=== PATIENT | female | born 1940 | race Caucasian/White ===

== ENCOUNTER 2017-01-16 14:47 | Emergency (ER) | payer MEDICARE, BC ==
[2017-01-16] MEDS ORDERED: Acetaminophen/HYDROcodone 325-5 MG Tab PO ONE (15:46)
--- NOTE | 2017-01-16 16:06 | EDM.PDOC ---
ED HPI Trauma - General Chief Complaint: Lower Extremity Injury/Pain Stated Complaint: FALL/ LEFT LEG INJURY Time Seen by Provider: 01/16/17 15:06 Source: Reports: Patient History Limitations: Reports: No limitations - History of Present Illness INITIAL COMMENTS - FREE TEXT/NARRATIVE: The patient presents with left hip and pelvis pain. She was knocked down by 3 excited dogs and landed on her buttock and left hip. She did not hit her head and she has no neck pain. She was able to stand on her leg but walking was painful. She has no chest pain or abdominal pain. She has no pain in her wrists. Occurred When: just prior to arrival Occurred Where: home Method of Injury: fall Severity: moderate Pain/Injury Location: Reports: lower extremity, left (Hip and pelvis area) Consciousness: Reports: no loss of consciousness Associated Symptoms: Reports: no other symptoms Allergies/ADRs: Allergies No Known Allergies Allergy (Verified 01/16/17 15:12) Home Medications: Ambulatory Orders Acetaminophen [Acetaminophen Extra Strength] 2 tab PO ASDIRECTED PRN 01/09/15 [ Confirmed 05/04/16] ClonazePAM [KlonoPIN] 1 tab PO BEDTIME PRN 01/09/15 [Confirmed 05/04/16] Gabapentin [Neurontin] 1 cap PO DAILY 01/09/15 [Confirmed 05/05/16] Multivitamin [Daily Multiple Vitamin] 1 tab PO DAILY 01/09/15 [Confirmed ] [place]-3 Fatty Acids [[place]-3] 1 cap PO DAILY 01/09/15 [Confirmed 05/04/16] Propranolol [Inderal] 40 mg PO BID 01/09/15 [Confirmed 05/05/16] Sertraline [Zoloft] 25 mg PO DAILY 01/09/15 [Confirmed 05/05/16] Warfarin [Coumadin] 2.5 mg PO SUMOTUTHSA 01/09/15 [Confirmed 05/04/16] Fluticasone Propionate [Flonase] 50 mcg NASBOTH DAILY 07/29/15 [Confirmed ] guaiFENesin [Guaifenesin] 600 mg PO DAILY PRN 07/29/15 [Confirmed 05/04/16] Acetaminophen/Diphenhydramine [Tylenol Pm Ex-Strength Caplet] 1 each PO BEDTIME 09/11/15 [Confirmed 05/04/16] Warfarin [Coumadin] 5 mg PO WEFR 09/11/15 [Confirmed 05/04/16] Albuterol [Proventil HFA] 6.7 gm INH Q6H 01/24/16 [Confirmed 05/04/16] Sevelamer Carbonate [Renvela] 800 mg PO TIDMEALS 01/24/16 [Confirmed 05/05/16] Sodium Bicarbonate 650 mg PO BID 01/24/16 [Confirmed 05/05/16] traMADol [Ultram] 50 mg PO BID 01/24/16 [Confirmed 05/04/16] Midodrine 5 mg PO MOWEFR 01/26/16 [Confirmed 05/04/16] Ciprofloxacin HCl [Cipro] 1 tab PO DAILY 05/04/16 [Confirmed 05/04/16] Doxycycline [Vibramycin] 1 tab PO DAILY 05/04/16 [Confirmed 05/04/16] Furosemide [Lasix] 1 tab PO DAILY 05/04/16 [Confirmed 05/04/16] Hydrocodone/Acetaminophen [[place] 5-325] 1 tab PO ASDIRECTED PRN 05/04/16 [ Confirmed 05/04/16] Metolazone [Zaroxolyn] 1 tab PO DAILY 05/04/16 [Confirmed 05/04/16] Omeprazole Magnesium [Prilosec Otc] 20 mg PO DAILY #30 tablet. 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: Musculoskeletal History: Reports: Arthritis Other Musculoskeletal History: osteomalacia, bone marrow biposy Neurological History: Reports: TIA Other Neuro History: trigeminal neuralgia Psychiatric History: Reports: Depression Endocrine/Metabolic History: Reports: Osteoporosis, Other (see below) Other Endocrine/Metabolic History: osteomalaysia Hematologic History: Reports: Blood transfusion(s) - Infectious Disease History Infectious Disease History: Reports: Chicken pox - Past Surgical History Head Surgeries/Procedures: Reports: None HEENT Surgical History: Reports: None, Cataract surgery Cardiovascular Surgical History: Reports: None Respiratory Surgical History: Reports: None Other GI Surgeries/Procedures: 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 has been seen at [facility] and was told it was not something they would do surgery for due to her health and age Other Neurological Surgeries/Procedures: trigeminal nerve seperated Dermatological Surgical History: Reports: None Social & Family History - Family History Family Medical History: Unobtainable - Tobacco Use Smoking Status *Q: Former Smoker Years of Tobacco use: 5 Packs/Tins Daily: 1 Used Tobacco, but Quit: Yes Month Tobacco Last Used: 1 Second Hand Smoke Exposure: No - Caffeine Use Caffeine Use: Reports: Soda - Recreational Drug Use Recreational Drug Use: No Drug Use in Last 12 Months: No Review of Systems - Review of Systems Review Of Systems: See Below Constitutional: Reports: no symptoms Eyes: Reports: no symptoms Ears: Reports: no symptoms Nose: Reports: no symptoms Mouth/Throat: Reports: no symptoms Respiratory: Reports: no symptoms Cardiovascular: Reports: no symptoms GI/Abdominal: Reports: No symptoms Genitourinary: Reports: no symptoms Musculoskeletal: Reports: other (Left hip pain and groin pain) Trauma Exam - Physical Exam Exam: See Below Exam Limited By: No limitations General Appearance: Reports: alert, no apparent distress Head: Reports: atraumatic, normocephalic Ears: Reports: normal external exam Nose: Reports: normal inspection Neck: Reports: non-tender Respiratory Exam: Reports: no respiratory distress, lungs clear, normal breath sounds Cardiovascular: Reports: regular rate, rhythm, no edema, no murmur GI/Abdominal: Reports: soft, non tender, no organomegaly Extremities: Reports: other (No pain upon palpation to the left hip but she does have pain to the left groin area. She has good sensation and pulses distally.) Course - Vital Signs Last Recorded V/S: Last Vital Signs Temp 97.2 F 01/16/17 15:05 Pulse 88 01/16/17 15:05 Resp BP 124/102 H 01/16/17 15:05 Pulse Ox 95 01/16/17 15:05 - Orders/Labs/Meds Orders: Active Orders 24 hr Category Date Time Status Peripheral IV Care [RC] . DIRECTED Care 01/16/17 16:31 Active Hip Min 2V or 3V w Pelvis Lt [CR] Stat Exams 01/16/17 15:20 Taken Pelvis wo Cont [CT] Stat Exams 01/16/17 16:47 Ordered COMPREHENSIVE METABOLIC PN,CMP [CHEM] Stat Lab 01/16/17 16:46 Received INR,PT,PROTHROMBIN TIME [COAG] Stat Lab 01/16/17 16:46 Received Sodium Chloride 0.9% [Saline Flush] Med 01/16/17 16:31 Active 10 ml FLUSH ASDIRECTED PRN Peripheral IV Insertion Adult [OM.PC] Stat Oth 01/16/17 16:31 Ordered Medication Orders Sodium Chloride (Saline Flush) 10 ml FLUSH ASDIRECTED PRN PRN Reason: Keep Vein Open Labs: Laboratory Tests 01/16/17 Range/Units 16:46 WBC 13.08 H (3.98-10.04) K/mm3 RBC 3.35 L (3.98-5.22) M/mm3 Hgb 11.0 L (11.2-15.7) gm/L Hct 35.3 (34.1-44.9) % MCV 105.4 H (79.4-94.8) fl MCH 32.8 H (25.6-32.2) pg MCHC 31.2 L (32.2-35.5) g/dl RDW Std Deviation 59.9 H (36.4-46.3) fL Plt Count 247 (182-369) K/mm3 MPV 11.3 (9.4-12.3) fl Neut % (Auto) 80.1 H (34.0-71.1) % Lymph % (Auto) 9.9 L (19.3-51.7) % [place] % (Auto) 7.6 (4.7-12.5) % Eos % (Auto) 1.9 (0.7-5.8) Baso % (Auto) 0.3 (0.1-1.2) % Neut # 10.48 H (1.56-6.13) K/mm3 Lymph # 1.29 (1.18-3.74) K/mm3 [place] # 0.99 H (0.24-0.36) K/mm3 Eos # 0.25 (0.04-0.36) K/mm3 Baso # 0.04 (0.01-0.08) K/mm3 Manual Slide Review Abnormal smear Meds: Medications Generic Name Dose Route Start Last Admin Trade Name Freq PRN Reason Stop Dose Admin Sodium Chloride 10 ml 01/16/17 16:31 Saline Flush FLUSH ASDIRECTED PRN Keep Vein Open Discontinued Medications Generic Name Dose Route Start Last Admin Trade Name Gino PRN Reason Stop Dose Admin Acetaminophen/Hydrocodone Bitart 2 tab 01/16/17 15:46 01/16/17 15:54 [place] 325-5 Mg PO 01/16/17 15:47 2 tab ONETIME ONE Administration Hydromorphone HCl 0.5 mg 01/16/17 16:51 01/16/17 16:59 Dilaudid IVPUSH 01/16/17 16:52 0.5 mg ONETIME ONE Administration - Re-Assessments/Exams Free Text/Narrative Re-Assessment/Exam: 01/16/17 16:06 I ordered 2 hydrocodone and an x-ray of her left hip with pelvis. 01/16/17 16:34 Her x-ray shows a left superior and inferior pubic rami fracture. Her hip just shows some degenerative changes. She will need to be admitted. She has chronic renal failure and needs dialysis Wednesday, Wednesday and Wednesday. We are not allowed to admit dialysis patients to our hospital. We cannot do inpatient dialysis. They patient sees Dr Ventura and Dr Elder is her loan underwriter. She would like to go to [facility] in [place]. I called [facility] in [place] and talked with Dr Tobin in the ER and he accepted the patient. I ordered an IV and labs. I also talked with the orthopedic surgeon Dr Aaron and he wanted a CT of her pelvis done before she goes. I will give her some dilaudid 0.5mg IV for the pain when they move her. 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 Fall Qualifiers: Encounter type: initial encounter Qualified Code(s): W19.XXXA - Unspecified fall, initial encounter Pelvic fracture Qualifiers: Encounter type: initial encounter Pelvic bone location: pubis Sublocation of pubis: superior rim Fracture type: closed Laterality: left Qualified Code(s): S32.512A - Fracture of superior rim of left pubis, initial encounter for closed fracture Referrals: Antwan Ventura MD [Primary Care Provider] - Forms: ED Department Discharge - My Orders Last 24 Hours: My Active Orders 01/16/17 15:20 Hip Min 2V or 3V w Pelvis Lt [CR] Stat 01/16/17 16:31 Peripheral IV Care [RC] . DIRECTED Sodium Chloride 0.9% [Saline Flush] 10 ml FLUSH ASDIRECTED PRN Peripheral IV Insertion Adult [OM.PC] Stat 01/16/17 16:46 COMPREHENSIVE METABOLIC PN,CMP [CHEM] Stat INR,PT,PROTHROMBIN TIME [COAG] Stat 01/16/17 16:47 Pelvis wo Cont [CT] Stat - Assessment/Plan Last 24 Hours: My Active Orders 01/16/17 15:20 Hip Min 2V or 3V w Pelvis Lt [CR] Stat 01/16/17 16:31 Peripheral IV Care [RC] . DIRECTED Sodium Chloride 0.9% [Saline Flush] 10 ml FLUSH ASDIRECTED PRN Peripheral IV Insertion Adult [OM.PC] Stat 01/16/17 16:46 COMPREHENSIVE METABOLIC PN,CMP [CHEM] Stat INR,PT,PROTHROMBIN TIME [COAG] Stat 01/16/17 16:47 Pelvis wo Cont [CT] Stat
[2017-01-16] MEDS ORDERED: Sodium Chloride 0.9% 10 ML Syringe FLUSH PRN (16:31)
[2017-01-16] MEDS ORDERED: HYDROmorphone 0.5 MG/0.5 ML Syringe IVPUSH ONE (16:51)
--- NOTE | 2017-01-16 17:36 | CT ---
CT pelvis Technique: Multiple axial sections through the pelvis were obtained. Study performed as a bone algorithm exam. Findings: Disc space narrowing is seen anteriorly at L5-S1 with vacuum phenomena. Degenerative apophyseal change is noted within the visualized lower lumbar spine. Fractures are identified within the superior pubic ramus and inferior pubic ramus near the pubic symphysis. Mild displacement is seen of the superior ramus fracture. Joint space narrowing is seen medially within the right hip. Joint space within the right hip shows minimal narrowing. No additional fracture is seen. Impression: 1. Fractures within the left inferior and superior pubic ramus. 2. Degenerative change within both hips, worse on the right side. Degenerative change also seen within the lumbar spine. Diagnostic code #3
[2017-01-16 18:25] VITALS: BP 109/80
--- NOTE | 2017-01-18 08:01 | CR ---
Pelvis and left hip: AP view of the pelvis was obtained as well as AP and frog-leg lateral views of the left hip. Comparison: No previous pelvis or left hip exam. Fractures are identified near the pubic symphysis within the superior and inferior pubic ramus. No additional pelvic or hip fracture is seen. Bony structures are osteoporotic. Vascular calcification is noted. Impression: 1. Inferior left pubic and superior left pubic rami fractures. 2. Other incidental findings. Diagnostic code #3
== END 2017-01-16 18:18 ==
LOC: JD.ED 14:47
DX: S32.512A Fracture of superior rim of left pubis, initial encounter for closed fracture (principal); I13.2 Hypertensive heart and chronic kidney disease with heart failure and with stage 5 chronic kidney disease, or end stage renal disease; I50.9 Heart failure, unspecified; N18.6 End stage renal disease; Z99.2 Dependence on renal dialysis; M19.90 Unspecified osteoarthritis, unspecified site; F32.9 Major depressive disorder, single episode, unspecified; M81.0 Age-related osteoporosis without current pathological fracture; Z98.84 Bariatric surgery status; Z87.891 Personal history of nicotine dependence; Z98.49 Cataract extraction status, unspecified eye; Z79.2 Long term (current) use of antibiotics; Z79.899 Other long term (current) drug therapy; W54.1XXA Struck by dog, initial encounter; Y92.009 Unspecified place in unspecified non-institutional (private) residence as the place of occurrence of the external cause
CPT/HCPCS: 36415; 72192; 73502; 80053; 85025; 85610; 96374; 99285; A9270; J1170; J7050

== ENCOUNTER 2017-01-31 15:04 | Emergency (ER) | payer MEDICARE, BC ==
[2017-01-31] MEDS ORDERED: Sodium Chloride 0.9% 10 ML Syringe FLUSH PRN (15:37)
--- NOTE | 2017-01-31 15:38 | EDM.PDOC ---
ED HISTORY OF PRESENT ILLNESS - General Chief Complaint: Cardiovascular Problem Stated Complaint: CHEST PAIN/VOMITING Time Seen by Provider: 01/31/17 15:28 Source of Information: Reports: Patient, Family (daughter) History Limitations: Reports: No limitations - History of Present Illness INITIAL COMMENTS - FREE TEXT/NARRATIVE: Patient presents for evaluation and treatment of nausea, vomiting, decreased appetite, chest pain and abdominal pain. Patient is a poor historian. History is mostly provided by the patient's daughter. Reports that she has been ill with nausea and a decreased appetite for the past several days. She reports that this morning around 3 AM she began short of breath. She was placed on oxygen, which is normally not on. she did improve with the oxygen, when removed she desated into the mid 80s. Patient is also complaining of chest pain and abdominal pain. She states that the pain is moving around. This has been going on for several days. Patient's daughter is concerned that she is more confused than normal. She states that she does not know where she is. She says she is normally not confused. Patient broke her right hip about 10 days ago. She was sent to [facility] in [place], she is on dialysis. She has been at [facility] for rehabilitation for the last 2 weeks. Plan is to have stay at [facility] for an additional 2 weeks for rehab. Patient is on Coumadin. Patient is a dialysis patient with [facility], Wednesday and Wednesday. - Related Data Allergies/ADRs: Allergies Allergy/AdvReac Type Severity Reaction Status Date / Time No Known Allergies Allergy Verified 01/31/17 15:30 Home Meds: Home Meds Acetaminophen 500 mg PO DAILY 01/31/17 [History] Acetaminophen [Q-Pap] 2 tab PO Q6H PRN 01/31/17 [History] Acetaminophen/Diphenhydramine [Tylenol Pm Ex-Strength Caplet] 1 tab PO DAILY [History] Albuterol Sulfate [Proair Hfa] 2 inh INH QID 01/31/17 [History] Benzocaine/Cetylpyrd/Menthol [Cepacol Sore Throat] 1 lorenzo PO ASDIRECTED PRN 01/31 [History] Calcium Acetate 2 tab PO TID 01/31/17 [History] Calcium Carbonate [Tums] 2 tab PO DAILY 01/31/17 [History] ClonazePAM [KlonoPIN] 0.5 mg PO BID PRN 01/31/17 [History] Doxycycline [Vibramycin] 100 mg PO DAILY 01/31/17 [History] Fluticasone Furoate [Flonase Sensimist] 1 inh DARLENE BID 01/31/17 [History] Furosemide 40 mg PO TUTHSA 01/31/17 [History] Gabapentin [Neurontin] 300 mg PO DAILY 01/31/17 [History] Hydrocodone/Acetaminophen [Hydrocodon-Acetaminophen 5-325] 1 tab PO Q4H PRN [History] Hyoscyamine Sulfate 1 tab PO QID 01/31/17 [History] Metolazone 2.5 mg PO TUTHSA 01/31/17 [History] Metoprolol Succinate 100 mg PO DAILY 01/31/17 [History] Midodrine 5 mg PO ASDIRECTED 01/31/17 [History] Nut.Tx.Impaired Renal Fxn,Soy [Nepro Carb Steady] 1 tab PO TID 01/31/17 [History ] Nystatin 15 ml PO QID 01/31/17 [History] Omeprazole 1 tab PO DAILY 01/31/17 [History] Pantoprazole [Protonix] 40 mg PO DAILY 01/31/17 [History] Polyethylene Glycol 3350 [MiraLAX] 1 dose PO DAILY 01/31/17 [History] Sertraline [Zoloft] 50 mg PO DAILY 01/31/17 [History] Sodium Bicarbonate 650 mg PO BID 01/31/17 [History] Warfarin [Coumadin] 1.25 mg PO MOTH 01/31/17 [History] Warfarin [Coumadin] 2.5 mg PO ASDIRECTED 01/31/17 [History] Warfarin [Coumadin] 2.5 mg PO TUWE 01/31/17 [History] guaiFENesin [Mucinex] 1 tab PO Q12H PRN 01/31/17 [History] Past Medical History HEENT History: Reports: Impaired vision, Macular degeneration Cardiovascular History: Reports: Afib, Heart Failure, Hypertension Respiratory History: Reports: Bronchitis, recurrent, SOB Gastrointestinal History: Reports: Diverticulosis Genitourinary History: Reports: Dialysis Other Genitourinary History: unspecific disorder of kidney & ureter, nephrosclerosis [employer] WORK[employer] History: Reports: Musculoskeletal History: Reports: Arthritis Other Musculoskeletal History: osteomalacia, bone marrow biposy Neurological History: Reports: TIA Other Neuro History: trigeminal neuralgia Psychiatric History: Reports: Depression Endocrine/Metabolic History: Reports: Osteoporosis, Other (see below) Other Endocrine/Metabolic History: osteomalaysia Hematologic History: Reports: Blood transfusion(s) - Infectious Disease History Infectious Disease History: Reports: Chicken pox - Past Surgical History Head Surgeries/Procedures: Reports: None HEENT Surgical History: Reports: None, Cataract surgery Cardiovascular Surgical History: Reports: None Respiratory Surgical History: Reports: None Other GI Surgeries/Procedures: 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 has been seen at [facility] and was told it was not something they would do surgery for due to her health and age Other Neurological Surgeries/Procedures: trigeminal nerve seperated Dermatological Surgical History: Reports: None Social & Family History - Family History Family Medical History: Unobtainable - Tobacco Use Smoking Status *Q: Former Smoker Years of Tobacco use: 5 Packs/Tins Daily: 1 Used Tobacco, but Quit: Yes Month Tobacco Last Used: 1 Second Hand Smoke Exposure: No - Caffeine Use Caffeine Use: Reports: Soda - Recreational Drug Use Recreational Drug Use: No Drug Use in Last 12 Months: No ED ROS GENERAL - Review of Systems Review Of Systems: See Below Constitutional: Reports: malaise, decreased appetite. Denies: fever Respiratory: Reports: Shortness of Breath, Cough Cardiovascular: Reports: Chest pain GI/Abdominal: Reports: Abdominal pain, Nausea, Vomiting Psychiatric: Reports: Confusion ED EXAM, GENERAL - Physical Exam Exam: See Below Exam Limited By: No limitations General Appearance: alert, WD/WN, no apparent distress Throat/Mouth: Normal inspection, Normal lips, Normal voice, No airway compromise Neck: normal inspection Respiratory/Chest: no respiratory distress, lungs clear, normal breath sounds Cardiovascular: normal peripheral pulses, regular rate, rhythm, no murmur GI/Abdominal: normal bowel sounds, soft, non tender Neurological: alert, oriented, normal cognition Psychiatric: normal affect, normal mood Skin Exam: Warm, Dry, Normal color EKG INTERPRETATION EKG Date: 01/31/17 Time: 16:10 Rhythm: a-fib Rate (beats/min): 103 [place]: normal P-wave: absent QRS: LBBB ST-T: normal QT: normal Comparison: no change EKG Interpretation Comments: A.fib at 103 bpm. LBBB. No change from 01-24-16 EKG. Reviewed by myself and Dr. Sheth. Course - Vital Signs Last Recorded V/S: Last Vital Signs Temp 36.3 C 01/31/17 15:17 Pulse 89 01/31/17 15:17 Resp 19 01/31/17 15:17 BP 144/94 H 01/31/17 15:17 Pulse Ox 100 01/31/17 15:17 - Orders/Labs/Meds Orders: Active Orders 24 hr Category Date Time Status Cardiac Monitoring [RC] . DIRECTED Care 01/31/17 15:35 Active EKG Documentation Completion [RC] STAT Care 01/31/17 15:35 Active Oxygen Therapy [RC] ASDIRECTED Care 01/31/17 15:35 Active Peripheral IV Care [RC] . DIRECTED Care 01/31/17 15:37 Active Chest 2V [CR] Stat Exams 01/31/17 15:35 Taken CULTURE BLOOD [BC] Stat Lab 01/31/17 16:15 Received CULTURE BLOOD [BC] Stat Lab 01/31/17 16:25 Received CULTURE URINE [RM] Stat Lab 01/31/17 20:30 Received Sodium Chloride 0.9% [Normal Saline] 100 ml Med 01/31/17 19:45 Active IV ASDIRECTED Sodium Chloride 0.9% [Saline Flush] Med 01/31/17 15:37 Active 10 ml FLUSH ASDIRECTED PRN Blood Culture x2 Reflex Set [OM.PC] Stat Oth 01/31/17 15:35 Ordered Peripheral IV Insertion Adult [OM.PC] Routine Oth 01/31/17 15:37 Ordered Medication Orders Sodium Chloride (Normal Saline) 100 mls @ 60 mls/hr IV ASDIRECTED DARIUS Sodium Chloride (Saline Flush) 10 ml FLUSH ASDIRECTED PRN PRN Reason: Keep Vein Open Last Admin: 01/31/17 17:04 Dose: 10 ml Labs: Laboratory Tests 01/31/17 01/31/17 01/31/17 Range/Units 16:15 16:15 16:15 WBC 10.54 H (3.98-10.04) K/mm3 RBC 3.59 L (3.98-5.22) M/mm3 Hgb 11.9 (11.2-15.7) gm/L Hct 38.1 (34.1-44.9) % MCV 106.1 H (79.4-94.8) fl MCH 33.1 H (25.6-32.2) pg MCHC 31.2 L (32.2-35.5) g/dl RDW Std Deviation 58.6 H (36.4-46.3) fL Plt Count 479 H (182-369) K/mm3 MPV 10.6 (9.4-12.3) fl Neutrophils % (Manual) 89 H (40-60) % Band Neutrophils % 0 (0-10) % Lymphocytes % (Manual) 6 L (20-40) % Atypical Lymphs % 0 % Monocytes % (Manual) 4 (2-10) % Eosinophils % (Manual) 0 L (0.7-5.8) % Basophils % (Manual) 1 (0.1-1.2) Platelet Estimate Adequate Plt Morphology Comment See note Poikilocytosis 1+ slight Anisocytosis 2+ moderate Macrocytosis 2+ moderate Ovalocytes 1+ slight PT (8.0-13.0) SECONDS INR Sodium 136 (136-145) mEq/L Potassium 4.8 (3.5-5.1) mEq/L Chloride 93 L (98-107) mEq/L Carbon Dioxide 34 H (21-32) mEq/L Anion Gap 13.8 (5-15) BUN 31 H (7-18) mg/dL Creatinine 5.2 H (0.55-1.02) mg/dL Est Cr Clr Drug Dosing TNP Estimated GFR (MDRD) 8 (>60) mL/min BUN/Creatinine Ratio 6.0 L (14-18) Glucose 114 (83-115) mg/dL Calcium 9.4 (8.5-10.1) mg/dL Total Bilirubin 0.7 (0.2-1.0) mg/dL AST 19 (15-37) U/L ALT 14 (14-59) U/L Alkaline Phosphatase 197 H (46-116) U/L CK-MB (CK-2) 0.8 (0-3.6) ng/ml Troponin I 0.027 (0.00-0.056) ng/mL C-Reactive Protein 6.9 H* (<1.0) mg/dL B-Natriuretic Peptide 3908 H (0-100) pg/mL Total Protein 7.7 (6.4-8.2) g/dl Albumin 2.9 L (3.4-5.0) g/dl Globulin 4.8 gm/dL Albumin/Globulin Ratio 0.6 L (1-2) Lipase (73-393) U/L Urine Color (Yellow) Urine Appearance (Clear) Urine pH (5.0-8.0) Ur Specific [place] (1.005-1.030) Urine Protein (Negative) Urine Glucose (UA) (Negative) Urine Ketones (Negative) Urine Occult Blood (Negative) Urine Nitrite (Negative) Urine Bilirubin (Negative) Urine Urobilinogen (0.2-1.0) Ur Leukocyte Esterase (Negative) Urine RBC (0-5) /hpf Urine WBC (0-5) /hpf Ur Squamous Epith Cells (0-5) /hpf Urine Bacteria (FEW) /hpf Urine Mucus (FEW) /hpf Mycoplasma pneumon IgM Negative (NEGATIVE) 01/31/17 01/31/17 01/31/17 Range/Units 16:15 16:15 19:45 WBC (3.98-10.04) K/mm3 RBC (3.98-5.22) M/mm3 Hgb (11.2-15.7) gm/L Hct (34.1-44.9) % MCV (79.4-94.8) fl MCH (25.6-32.2) pg MCHC (32.2-35.5) g/dl RDW Std Deviation (36.4-46.3) fL Plt Count (182-369) K/mm3 MPV (9.4-12.3) fl Neutrophils % (Manual) (40-60) % Band Neutrophils % (0-10) % Lymphocytes % (Manual) (20-40) % Atypical Lymphs % % Monocytes % (Manual) (2-10) % Eosinophils % (Manual) (0.7-5.8) % Basophils % (Manual) (0.1-1.2) Platelet Estimate Plt Morphology Comment Poikilocytosis Anisocytosis Macrocytosis Ovalocytes PT 26.9 H (8.0-13.0) SECONDS INR 2.34 Sodium (136-145) mEq/L Potassium (3.5-5.1) mEq/L Chloride (98-107) mEq/L Carbon Dioxide (21-32) mEq/L Anion Gap (5-15) BUN (7-18) mg/dL Creatinine (0.55-1.02) mg/dL Est Cr Clr Drug Dosing Estimated GFR (MDRD) (>60) mL/min BUN/Creatinine Ratio (14-18) Glucose (83-115) mg/dL Calcium (8.5-10.1) mg/dL Total Bilirubin (0.2-1.0) mg/dL AST (15-37) U/L ALT (14-59) U/L Alkaline Phosphatase (46-116) U/L CK-MB (CK-2) (0-3.6) ng/ml Troponin I (0.00-0.056) ng/mL C-Reactive Protein (<1.0) mg/dL B-Natriuretic Peptide (0-100) pg/mL Total Protein (6.4-8.2) g/dl Albumin (3.4-5.0) g/dl Globulin gm/dL Albumin/Globulin Ratio (1-2) Lipase 65 L (73-393) U/L Urine Color Divya H (Yellow) Urine Appearance Cloudy H (Clear) Urine pH 8.5 H (5.0-8.0) Ur Specific [place] 1.020 (1.005-1.030) Urine Protein 2+ H (Negative) Urine Glucose (UA) Negative (Negative) Urine Ketones Negative (Negative) Urine Occult Blood 2+ H (Negative) Urine Nitrite Negative (Negative) Urine Bilirubin 1+ H (Negative) Urine Urobilinogen 0.2 (0.2-1.0) Ur Leukocyte Esterase 3+ H (Negative) Urine RBC 10-20 H (0-5) /hpf Urine WBC >100 H (0-5) /hpf Ur Squamous Epith Cells 10-20 H (0-5) /hpf Urine Bacteria Many H (FEW) /hpf Urine Mucus Not seen (FEW) /hpf Mycoplasma pneumon IgM (NEGATIVE) Meds: Medications Generic Name Dose Route Start Last Admin Trade Name Freq PRN Reason Stop Dose Admin Sodium Chloride 100 mls @ 60 mls/hr 01/31/17 19:45 Normal Saline IV ASDIRECTED DARIUS Sodium Chloride 10 ml 01/31/17 15:37 01/31/17 17:04 Saline Flush FLUSH 10 ml ASDIRECTED PRN Administration Keep Vein Open Discontinued Medications Generic Name Dose Route Start Last Admin Trade Name Gino PRN Reason Stop Dose Admin Acetaminophen 650 mg 01/31/17 18:30 01/31/17 18:37 Tylenol PO 01/31/17 18:31 650 mg NOW ONE Administration Diatrizoate Meglum/Diatrizoate Sod 90 ml 01/31/17 19:41 01/31/17 20:20 Gastrografin 37% PO 01/31/17 19:42 90 ml ONETIME ONE Administration Dicyclomine HCl 10 mg 01/31/17 18:29 01/31/17 18:37 Bentyl PO 01/31/17 18:30 10 mg ONETIME ONE Administration Ceftriaxone Sodium 1 gm/ 100 mls @ 200 mls/hr 01/31/17 21:01 01/31/17 21:31 Sodium Chloride IV 01/31/17 21:30 200 mls/hr ONETIME ONE Administration Iopamidol 100 ml 01/31/17 19:41 01/31/17 20:20 Isovue-300 (61%) IVPUSH 01/31/17 19:42 80 ml ONETIME ONE Administration Ondansetron HCl 4 mg 01/31/17 16:45 01/31/17 17:01 Zofran IVPUSH 01/31/17 16:46 4 mg ONETIME ONE Administration Ondansetron HCl 4 mg 01/31/17 22:35 01/31/17 22:56 Zofran IVPUSH 01/31/17 22:36 4 mg ONETIME ONE Administration Sodium Chloride 10 ml 01/31/17 19:41 01/31/17 20:21 Saline Flush FLUSH 01/31/17 19:42 10 ml ONETIME ONE Administration - Radiology Interpretation Free Text/Narrative:: CT head without contrast impression per Dr. Croft: Senescent change as described above. Nothing acute is identified on noncontrast head CT exam. CT abdomen and pelvis impression per Dr. Croft: 1. Mild intrahepatic biliary duct dilatation as well as extrahepatic biliary duct dilation. This may be residual from prior cholecystectomy. Please correlate that the patient has no abnormal biliary enzymes. 2. Small bilateral pleural effusions with bibasilar atelectasisi. 3. Diffuse body wall edema. Other incidental findings. 4. Nothing acute is appreciated on Ct study of the abdomen and pelvis. Chest 2 view shows a stable right sided pleural effusion. No acute changes. - Re-Assessments/Exams Free Text/Narrative Re-Assessment/Exam: 01/31/17 22:24 Labs have returned. I reviewed the lab work, EKG and CT results with the patient and her family. She does have a urinary tract infection. Her chest x-ray does show a right- sided stable pleural effusion. No acute findings on CT of the head or abdomen and pelvis. The daughter does not feel that she is safe to return to the assisted. I have given her some IV Rocephin here in the ER. Daughter feel that she requires admission. Unfortunately, I am unable to admit her here due to the fact that she is on dialysis. I spoke with Dr. cole, hospitalist at [facility], he agrees to the admission. Will admit for observation. Patient will go by ground ambulance to [facility] in [place]. Departure - Departure Time of Disposition: 22:41 Disposition: DC/Tfer to [facility] 02 Reason for Transfer *Q: Other Condition: fair Clinical Impression: Urinary tract infection, Confusion Forms: ED Department Discharge Additional Instructions: Patient to go by ground ambulance to [facility] in [place]. Dr. Cole accepting. - My Orders Last 24 Hours: My Active Orders 01/31/17 15:35 Cardiac Monitoring [RC] . DIRECTED EKG Documentation Completion [RC] STAT Oxygen Therapy [RC] ASDIRECTED Chest 2V [CR] Stat Blood Culture x2 Reflex Set [OM.PC] Stat 01/31/17 15:37 Peripheral IV Care [RC] . DIRECTED Sodium Chloride 0.9% [Saline Flush] 10 ml FLUSH ASDIRECTED PRN Peripheral IV Insertion Adult [OM.PC] Routine 01/31/17 16:15 CULTURE BLOOD [BC] Stat 01/31/17 16:25 CULTURE BLOOD [BC] Stat 01/31/17 19:45 Sodium Chloride 0.9% [Normal Saline] 100 ml IV ASDIRECTED 01/31/17 20:30 CULTURE URINE [RM] Stat - Assessment/Plan Last 24 Hours: My Active Orders 01/31/17 15:35 Cardiac Monitoring [RC] . DIRECTED EKG Documentation Completion [RC] STAT Oxygen Therapy [RC] ASDIRECTED Chest 2V [CR] Stat Blood Culture x2 Reflex Set [OM.PC] Stat 01/31/17 15:37 Peripheral IV Care [RC] . DIRECTED Sodium Chloride 0.9% [Saline Flush] 10 ml FLUSH ASDIRECTED PRN Peripheral IV Insertion Adult [OM.PC] Routine 01/31/17 16:15 CULTURE BLOOD [BC] Stat 01/31/17 16:25 CULTURE BLOOD [BC] Stat 01/31/17 19:45 Sodium Chloride 0.9% [Normal Saline] 100 ml IV ASDIRECTED 01/31/17 20:30 CULTURE URINE [RM] Stat
[2017-01-31] MEDS ORDERED: Ondansetron 4 MG/2 ML SDV IVPUSH ONE ×2 (16:45→22:35)
[2017-01-31] MEDS ORDERED: Dicyclomine 10 MG Cap PO ONE (18:29)
[2017-01-31] MEDS ORDERED: Acetaminophen 325 MG Tab PO ONE (18:30)
[2017-01-31] MEDS ORDERED: Iopamidol 612 MG/ML 100 ML Bottle IVPUSH ONE (19:41)
[2017-01-31] MEDS ORDERED: Diatrizoate Meglumine/Diatrizoate Sodium 37% 120 ML Bottle PO ONE (19:41)
[2017-01-31] MEDS ORDERED: Sodium Chloride 0.9% 10 ML Syringe FLUSH ONE (19:41)
[2017-01-31] MEDS ORDERED: Sodium Chloride 0.9% 100 ML IV SCH (19:45)
--- NOTE | 2017-01-31 20:40 | CT ---
Delicate head CT Technique: Multiple axial sections through the brain were obtained. Intravenous contrast was not utilized. Comparison: Previous MRI brain of 06/26/14 is available Findings: Ventricles along with basal cisterns and sulci over the convexities are within normal limits for the patient's age. Multiple areas of increased signal are scattered within the periventricular and subcortical white matter which is compatible with fairly prominent small vessel ischemic demyelination change. Small low density finding is seen within the left cerebellar hemisphere likely due to old lacunar infarct. No other abnormal parenchymal densities are seen. No evidence of intracranial hemorrhage. No midline shift or mass effect is seen. Atherosclerotic change noted within the vertebral vessels and within the carotid siphon. Bone window settings were reviewed which shows visualized sinuses to appear clear. Visualized mastoid sinuses are also clear. Middle ear cavities are clear. No acute calvarial abnormality is seen. Impression: 1. Senescent change as described above. Nothing acute is identified on noncontrast head CT exam. Diagnostic code #2
--- NOTE | 2017-01-31 20:45 | CT ---
CT abdomen and pelvis Technique: Multiple axial sections through the abdomen and pelvis were obtained. Intravenous and oral contrast was utilized. Comparison: No previous CT abdomen or pelvis exam is available. Findings: Small bilateral pleural effusions are seen within both lung bases. Compressive type atelectasis is seen within both lung bases. Findings are worse on the right side. Liver shows minimal intrahepatic biliary duct dilatation. Common hepatic duct measures approximately 1.6 cm in size. Findings may relate to previous cholecystectomy. No focal parenchymal abnormality is seen within the liver. Spleen size is normal. Both kidneys show severe atrophy. Adrenal glands show no nodule. Aorta shows diffuse atherosclerotic change which continues into the iliac vessels without aneurysm. No retroperitoneal adenopathy or mesenteric abnormalities are seen. Pancreas is diffusely atrophied. Diffuse body wall edema seen throughout the abdomen and pelvis. No pelvic mass or adenopathy is seen. Delated images shows minimal contrast within the bladder compatible with poor renal output. Appendix not appreciated with certainty. No bowel dilatation or inflammatory change is seen. Bone window settings shows accentuated lordosis within the lumbar spine with scattered degenerative change and osteopenia. Mild scoliosis is also seen. Impression: 1. Mild intrahepatic biliary duct dilatation as well as extrahepatic biliary duct dilatation. This may be residual from prior cholecystectomy. Please correlate that patient has no abnormal biliary enzymes. 2. Small bilateral pleural effusions with bibasilar atelectasis. 3. Diffuse body wall edema. Other incidental findings. 4. Nothing acute is appreciated on CT study of the abdomen and pelvis. Diagnostic code #3
[2017-01-31] MEDS ORDERED: cefTRIAXone 1 GM in Sodium Chloride 0.9% 100 ML IV ONE (21:01)
[2017-02-01 00:05] VITALS: BP 134/84
--- NOTE | 2017-02-01 07:59 | CR ---
Chest: Two views of the chest were obtained. Comparison: Previous chest x-ray of 01/24/16. Small pleural effusions are seen slightly more prominent on the right side. Pulmonary vessels are congested most of which appears to be chronic. Heart is enlarged. Tortuous thoracic aorta is seen. Kyphosis and degenerative change noted within the spine. Surgical anastomotic sutures are seen within the abdomen. Bony structures are osteopenic. Impression: 1. Findings which are felt compatible with mild CHF superimposed upon chronic pulmonary vascular congestion. Diagnostic code #3
== END 2017-01-31 23:15 ==
LOC: JD.ED 15:04
DX: N39.0 Urinary tract infection, site not specified (principal); R41.0 Disorientation, unspecified; J90 Pleural effusion, not elsewhere classified; R60.9 Edema, unspecified; I48.91 Unspecified atrial fibrillation; I50.9 Heart failure, unspecified; I10 Essential (primary) hypertension; N18.9 Chronic kidney disease, unspecified; F32.9 Major depressive disorder, single episode, unspecified; Z86.73 Personal history of transient ischemic attack (TIA), and cerebral infarction without residual deficits; Z87.891 Personal history of nicotine dependence; Z79.01 Long term (current) use of anticoagulants; Z79.899 Other long term (current) drug therapy; Z99.2 Dependence on renal dialysis
CPT/HCPCS: 36415; 70450; 71020; 74177; 80053; 81001; 82553; 83690; 83880; 84484; 85025; 85610; 86140; 86738; 87040; 87086; 87804; 93005; 96365; 96375; 96376; 99285; A9270; J0696; J2405; J7030; J7050; Q9963; Q9967; 87088; 87186; 99284

== ENCOUNTER 2017-02-06 14:23 | Emergency (ER) | payer MEDICARE, BC ==
[2017-02-06] MEDS ORDERED: Metolazone 5 MG Tab PO ONE (17:01)
--- NOTE | 2017-02-06 17:14 | EDM.PDOC ---
ED HISTORY OF PRESENT ILLNESS - General Chief Complaint: Respiratory Problem Stated Complaint: COUGHING Time Seen by Provider: 02/06/17 14:50 Source of Information: Reports: Patient, Family (), Old records History Limitations: Reports: No limitations - History of Present Illness INITIAL COMMENTS - FREE TEXT/NARRATIVE: Camila is a pleasant, thin 76yo female presents to ED today with cough and shortness of breath. She has been at [facility] for rehab stay due to pelvic fx recently. She was however, discharged from [facility] yesterday after a one week hospital stay due to AUTI, acute on chronic renal failure and CHF exacerbation. She had coughing and episode of hypoxia at custodial today. Staff phoned her PCP, Dr. Ventura who recommended ER evaluation. Dr. Chavez did speak with Dr. Ventura about patient who relayed information to me. Symptom Onset Date: 02/06/17 Location, General: Reports: chest Improves with: Reports: None Worsens with: Reports: None - Related Data Allergies/ADRs: Allergies Allergy/AdvReac Type Severity Reaction Status Date / Time No Known Allergies Allergy Verified 01/31/17 15:30 Home Meds: Home Meds Acetaminophen 500 mg PO DAILY 01/31/17 [History] Acetaminophen [Q-Pap] 2 tab PO Q6H PRN 01/31/17 [History] Acetaminophen/Diphenhydramine [Tylenol Pm Ex-Strength Caplet] 1 tab PO DAILY [History] Albuterol Sulfate [Proair Hfa] 2 inh INH QID 01/31/17 [History] Benzocaine/Cetylpyrd/Menthol [Cepacol Sore Throat] 1 lorenzo PO ASDIRECTED PRN 01/31 [History] ClonazePAM [KlonoPIN] 0.5 mg PO BID PRN 01/31/17 [History] Fluticasone Furoate [Flonase Sensimist] 1 inh DARLENE BID 01/31/17 [History] Furosemide 40 mg PO TUTHSA 01/31/17 [History] Gabapentin [Neurontin] 300 mg PO DAILY 01/31/17 [History] Hydrocodone/Acetaminophen [Hydrocodon-Acetaminophen 5-325] 1 tab PO Q4H PRN [History] Hyoscyamine Sulfate 1 tab PO QID 01/31/17 [History] Metolazone 2.5 mg PO TUTHSA 01/31/17 [History] Metoprolol Succinate 100 mg PO DAILY 01/31/17 [History] Midodrine 5 mg PO ASDIRECTED 01/31/17 [History] Nystatin 15 ml PO QID 01/31/17 [History] Pantoprazole [Protonix] 40 mg PO DAILY 01/31/17 [History] Polyethylene Glycol 3350 [MiraLAX] 1 dose PO DAILY 01/31/17 [History] Sertraline [Zoloft] 50 mg PO DAILY 01/31/17 [History] Sodium Bicarbonate 650 mg PO BID 01/31/17 [History] Warfarin [Coumadin] 2.5 mg PO DAILY 01/31/17 [History] guaiFENesin [Mucinex] 1 tab PO Q12H PRN 01/31/17 [History] Amoxicillin/Potassium Clav [Amox-Clav 875-125 mg Tablet] 1 tab PO TID 02/06/17 [ History] traMADol [Ultram] 50 mg PO Q8H 02/06/17 [History] Past Medical History HEENT History: Reports: Impaired vision, Macular degeneration Cardiovascular History: Reports: Afib, Heart Failure, Hypertension Respiratory History: Reports: Bronchitis, recurrent, SOB Gastrointestinal History: Reports: Diverticulosis Genitourinary History: Reports: Dialysis Other Genitourinary History: unspecific disorder of kidney & ureter, nephrosclerosis 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: Musculoskeletal History: Reports: Arthritis Other Musculoskeletal History: osteomalacia, bone marrow biposy Neurological History: Reports: TIA Other Neuro History: trigeminal neuralgia Psychiatric History: Reports: Depression Endocrine/Metabolic History: Reports: Osteoporosis, Other (see below) Other Endocrine/Metabolic History: osteomalaysia Hematologic History: Reports: Blood transfusion(s) - Infectious Disease History Infectious Disease History: Reports: Chicken pox - Past Surgical History Head Surgeries/Procedures: Reports: None HEENT Surgical History: Reports: None, Cataract surgery Cardiovascular Surgical History: Reports: None Respiratory Surgical History: Reports: None Other GI Surgeries/Procedures: 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 has been seen at [facility] and was told it was not something they would do surgery for due to her health and age Other Neurological Surgeries/Procedures: trigeminal nerve seperated Dermatological Surgical History: Reports: None Social & Family History - Family History Family Medical History: Unobtainable - Tobacco Use Smoking Status *Q: Former Smoker Years of Tobacco use: 5 Packs/Tins Daily: 1 Used Tobacco, but Quit: Yes Month Tobacco Last Used: 1 Second Hand Smoke Exposure: No - Caffeine Use Caffeine Use: Reports: Coffee - Recreational Drug Use Recreational Drug Use: No Drug Use in Last 12 Months: No ED ROS GENERAL - Review of Systems Review Of Systems: See Below Constitutional: Reports: weakness HEENT: Reports: No symptoms Respiratory: Reports: Shortness of Breath, Cough Cardiovascular: Denies: Chest pain, Lightheadedness, Palpitations GI/Abdominal: Reports: No symptoms. Denies: Abdominal pain, Diarrhea, Nausea, Vomiting : Reports: no symptoms Neurological: Reports: No Symptoms Psychiatric: Reports: No symptoms ED EXAM, GENERAL - Physical Exam Exam: See Below Exam Limited By: No limitations General Appearance: alert, WD/WN, no apparent distress Eye Exam: bilateral eye: EOMI, PERRL Ears: normal external exam, hearing grossly normal Nose: normal inspection Throat/Mouth: Normal inspection, Other (dry mucous membrane) Head: atraumatic, normocephalic Neck: normal inspection Respiratory/Chest: no respiratory distress, decreased breath sounds (mid to lower lobes bilat), wheezing (minimal ) Cardiovascular: regular rate, rhythm, systolic murmur, other (1+ edema to LE/ ankles/pedal- herb hose bilat) Peripheral Pulses: 1+: dorsalis pedis (L), dorsalis pedis (R) GI/Abdominal: normal bowel sounds, soft, non tender, no organomegaly (Female) Exam: Deferred Rectal (Female) Exam: Deferred Back Exam: normal inspection Extremities: pedal edema Neurological: alert, oriented, CN II-XII intact, normal cognition Psychiatric: normal affect, normal mood Skin Exam: Warm, Dry Course - Vital Signs Last Recorded V/S: Last Vital Signs Temp 98.4 F 02/06/17 14:34 Pulse 87 02/06/17 14:34 Resp 18 02/06/17 14:34 BP 143/100 H 02/06/17 14:34 Pulse Ox 93 L 02/06/17 14:34 - Orders/Labs/Meds Orders: Active Orders 24 hr Category Date Time Status Chest 2V [CR] Stat Exams 02/06/17 15:05 Taken Labs: Laboratory Tests 02/06/17 02/06/17 Range/Units 15:58 15:58 WBC 8.75 (3.98-10.04) K/mm3 RBC 3.49 L (3.98-5.22) M/mm3 Hgb 11.5 (11.2-15.7) gm/L Hct 36.9 (34.1-44.9) % MCV 105.7 H (79.4-94.8) fl MCH 33.0 H (25.6-32.2) pg MCHC 31.2 L (32.2-35.5) g/dl RDW Std Deviation 58.9 H (36.4-46.3) fL Plt Count 408 H (182-369) K/mm3 MPV 9.9 (9.4-12.3) fl Neut % (Auto) 72.2 H (34.0-71.1) % Lymph % (Auto) 15.7 L (19.3-51.7) % Sibley % (Auto) 9.3 (4.7-12.5) % Eos % (Auto) 1.7 (0.7-5.8) Baso % (Auto) 0.5 (0.1-1.2) % Neut # (Auto) 6.33 H (1.56-6.13) K/mm3 Lymph # (Auto) 1.37 (1.18-3.74) K/mm3 Sibley # (Auto) 0.81 H (0.24-0.36) K/mm3 Eos # (Auto) 0.15 (0.04-0.36) K/mm3 Baso # (Auto) 0.04 (0.01-0.08) K/mm3 Manual Slide Review Abnormal smear Sodium 143 (136-145) mEq/L Potassium 4.0 (3.5-5.1) mEq/L Chloride 102 (98-107) mEq/L Carbon Dioxide 31 (21-32) mEq/L Anion Gap 14.0 (5-15) BUN 16 (7-18) mg/dL Creatinine 4.2 H (0.55-1.02) mg/dL Est Cr Clr Drug Dosing 7.93 mL/min Estimated GFR (MDRD) 10 (>60) mL/min BUN/Creatinine Ratio 3.8 L (14-18) Glucose 108 (83-115) mg/dL Calcium 9.1 (8.5-10.1) mg/dL Meds: Medications Discontinued Medications Generic Name Dose Route Start Last Admin Trade Name Gino PRN Reason Stop Dose Admin Metolazone 5 mg 02/06/17 17:01 Zaroxolyn PO 02/06/17 17:02 ONETIME ONE - Radiology Interpretation Free Text/Narrative:: 2 view CXR shows bilateral pleural effusions; comparable to prior film done on . Lateral shows effusion present also. Reviewed with Dr. Chavez. - Re-Assessments/Exams Free Text/Narrative Re-Assessment/Exam: 02/06/17 17:19 Repeat assessment; patient sleeping and O2 sats down to 88%. 2L O2 applied NC and sats returned to the 90's. Case reviewed with PCP Dr. Ventura Recommends 5mg PO metolazone, O2 at night at [facility], daily weights and he will follow up with patient during her dialysis session on Wednesday morning. [facility]; reported findings and POC to them also. Departure - Departure Time of Disposition: 17:20 Disposition: DC/Tfer to [facility] Clinical Impression: Cough, Pleural effusion, Renal failure Renal failure, chronic Qualifiers: Chronic kidney disease stage: stage 5 Qualified Code(s): N18.5 - Chronic kidney disease, stage 5 Instructions: Shortness of Breath, [id number] Forms: ED Department Discharge Additional Instructions: CXR: shows continued pleural effusions, similar to study done on 01/31/17. Reviewed with Dr. Ventura; extra 5mg metolazone PO given per PCP's instruction. [facility] -Oxygen 1L per NC at night and PRN to keep oxygen saturations >90% -Daily am weights and record Follow up with Dr. Ventura on Wednesday during dialysis treatment - My Orders Last 24 Hours: My Active Orders 02/06/17 15:05 Chest 2V [CR] Stat - Assessment/Plan Last 24 Hours: My Active Orders 02/06/17 15:05 Chest 2V [CR] Stat
[2017-02-06 18:07] VITALS: BP 144/98
--- NOTE | 2017-02-08 06:53 | CR ---
Chest: Two views of the chest are obtained. Comparison: Previous chest x-ray of 01/31/17. Right sided pleural effusion is seen which has slightly increased in amount from previous exam. Minimal left-sided pleural effusion is noted. Atelectasis noted within the right lung base. Lungs otherwise are clear. Tortuous thoracic aorta is seen. Surgical anastomotic sutures are noted within the upper abdomen. Bony structures are osteopenic. Impression: 1. Increasing right sided pleural effusion and increasing right basilar atelectasis. 2. Other incidental findings as noted above. Diagnostic code #3
== END 2017-02-06 18:00 ==
LOC: JD.ED 14:23
DX: I13.2 Hypertensive heart and chronic kidney disease with heart failure and with stage 5 chronic kidney disease, or end stage renal disease (principal); N18.5 Chronic kidney disease, stage 5; I50.9 Heart failure, unspecified; J90 Pleural effusion, not elsewhere classified; Z99.2 Dependence on renal dialysis; F32.9 Major depressive disorder, single episode, unspecified; M81.0 Age-related osteoporosis without current pathological fracture; Z86.73 Personal history of transient ischemic attack (TIA), and cerebral infarction without residual deficits; Z98.49 Cataract extraction status, unspecified eye; Z98.890 Other specified postprocedural states; Z98.84 Bariatric surgery status; Z87.891 Personal history of nicotine dependence; Z79.01 Long term (current) use of anticoagulants; Z79.899 Other long term (current) drug therapy
CPT/HCPCS: 36415; 71020; 80048; 85025; 99285; A9270; 99284

== ENCOUNTER 2017-02-08 09:49 | Emergency (ER) | payer MEDICARE, BC ==
--- NOTE | 2017-02-08 10:07 | EDM.PDOC ---
ED HPI NEURO - General Stated Complaint: DIFFICULTY BREATHING Time Seen by Provider: 02/08/17 10:04 - History of Present Illness INITIAL COMMENTS - FREE TEXT/NARRATIVE: 76-year-old female is brought over to the emergency room from dialysis. Patient reportedly had sudden onset shortness of breath quickly followed by loss of consciousness at dialysis. Upon arrival here the patient is not able to give us a history he can she is unresponsive. Patient is on Coumadin and after the initial evaluation was reported with the patient fell at the group home it is unknown if she hit her head or not. - Related Data Allergies/ADRs: Allergies Allergy/AdvReac Type Severity Reaction Status Date / Time No Known Allergies Allergy Verified 01/31/17 15:30 Home Meds: Home Meds Acetaminophen 500 mg PO DAILY 01/31/17 [History] Albuterol Sulfate [Proair Hfa] 2 inh INH QID 01/31/17 [History] ClonazePAM [KlonoPIN] 0.5 mg PO BID PRN 01/31/17 [History] Fluticasone Furoate [Flonase Sensimist] 1 inh DARLENE BID 01/31/17 [History] Furosemide 40 mg PO TUTHSA 01/31/17 [History] Gabapentin [Neurontin] 300 mg PO DAILY 01/31/17 [History] Hydrocodone/Acetaminophen [Hydrocodon-Acetaminophen 5-325] 1 tab PO Q4H PRN [History] Hyoscyamine Sulfate 1 tab PO QID 01/31/17 [History] Metolazone 2.5 mg PO TUTHSA 01/31/17 [History] Metoprolol Succinate 100 mg PO DAILY 01/31/17 [History] Midodrine 5 mg PO MOWEFR 01/31/17 [History] Pantoprazole [Protonix] 40 mg PO DAILY 01/31/17 [History] Polyethylene Glycol 3350 [MiraLAX] 1 dose PO DAILY 01/31/17 [History] Sertraline [Zoloft] 50 mg PO BID 01/31/17 [History] Warfarin [Coumadin] 2.5 mg PO DAILY 01/31/17 [History] guaiFENesin [Mucinex] 1 tab PO Q12H PRN 01/31/17 [History] traMADol [Ultram] 50 mg PO Q8H 02/06/17 [History] Past Medical History HEENT History: Reports: Impaired vision, Macular degeneration Cardiovascular History: Reports: Afib, Heart Failure, Hypertension Respiratory History: Reports: Bronchitis, recurrent, SOB Gastrointestinal History: Reports: Diverticulosis Genitourinary History: Reports: Dialysis Other Genitourinary History: unspecific disorder of kidney & ureter, nephrosclerosis 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: Musculoskeletal History: Reports: Arthritis Other Musculoskeletal History: osteomalacia, bone marrow biposy Neurological History: Reports: TIA Other Neuro History: trigeminal neuralgia Psychiatric History: Reports: Depression Endocrine/Metabolic History: Reports: Osteoporosis, Other (see below) Other Endocrine/Metabolic History: osteomalaysia Hematologic History: Reports: Blood transfusion(s) - Infectious Disease History Infectious Disease History: Reports: Chicken pox - Past Surgical History Head Surgeries/Procedures: Reports: None HEENT Surgical History: Reports: None, Cataract surgery Cardiovascular Surgical History: Reports: None Respiratory Surgical History: Reports: None Other GI Surgeries/Procedures: 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 has been seen at [facility] and was told it was not something they would do surgery for due to her health and age Other Neurological Surgeries/Procedures: trigeminal nerve seperated Dermatological Surgical History: Reports: None Social & Family History - Family History Family Medical History: Unobtainable - Tobacco Use Smoking Status *Q: Former Smoker Years of Tobacco use: 5 Packs/Tins Daily: 1 Used Tobacco, but Quit: Yes Month Tobacco Last Used: 1 Second Hand Smoke Exposure: No - Caffeine Use Caffeine Use: Reports: Coffee - Recreational Drug Use Recreational Drug Use: No Drug Use in Last 12 Months: No ED ROS GENERAL - Review of Systems Review Of Systems: Unable To Obtain ED EXAM, NEURO - Physical Exam Exam: See Below Exam Limited By: Other (Patient unresponsive) General Appearance: other (Patient was unresponsive upon arrival here she was noted to have a fixed dilated right pupil and he sluggishly responsive pupil on the left) Eye Exam: bilateral eye: other (Patient had a fixed pupil on the right it was dilated sluggish responsive pupil in the left) Ears: normal external exam, normal canal, normal TMs, other (No drainage) Nose: normal inspection Throat/Mouth: Normal inspection, Normal lips, No airway compromise, Other ( Interest in place) Head Exam: atraumatic, normocephalic Neck: normal inspection, supple. No: lymphadenopathy (L), lymphadenopathy (R) Respiratory/Chest: no respiratory distress, lungs clear, normal breath sounds Cardiovascular: tachycardia (Rate 100-120), irregularly irregular GI/Abdominal: normal bowel sounds, soft Neurological: no response to pain. No: extensor response to pain, flexor response to pain Extremities: pedal edema (Mild bilaterally) Course - Vital Signs Last Recorded V/S: Last Vital Signs Temp 36.6 C 02/08/17 10:17 Pulse 86 02/08/17 10:17 Resp 25 H 02/08/17 10:17 BP 185/103 H 02/08/17 10:17 Pulse Ox 87 L 02/08/17 10:17 - Orders/Labs/Meds Orders: Active Orders 24 hr Category Date Time Status EKG Documentation Completion [RC] STAT Care 02/08/17 10:06 Active Labs: Laboratory Tests 02/08/17 02/08/17 02/08/17 Range/Units 10:00 10:00 10:00 WBC 15.31 H (3.98-10.04) K/mm3 RBC 3.26 L (3.98-5.22) M/mm3 Hgb 10.9 L (11.2-15.7) gm/L Hct 34.5 (34.1-44.9) % MCV 105.8 H (79.4-94.8) fl MCH 33.4 H (25.6-32.2) pg MCHC 31.6 L (32.2-35.5) g/dl RDW Std Deviation 60.7 H (36.4-46.3) fL Plt Count 376 H (182-369) K/mm3 MPV 10.4 (9.4-12.3) fl Neutrophils % (Manual) 67 H (40-60) % Band Neutrophils % 1 (0-10) % Lymphocytes % (Manual) 24 (20-40) % Atypical Lymphs % 0 % Monocytes % (Manual) 5 (2-10) % Eosinophils % (Manual) 1 (0.7-5.8) % Basophils % (Manual) 2 H (0.1-1.2) Platelet Estimate Adequate Anisocytosis 1+ slight Macrocytosis 1+ slight RBC Morph Comment Not Reportable PT 39.2 H (8.0-13.0) SECONDS INR 3.33 APTT 64 H (22-36) SECONDS Sodium 141 (136-145) mEq/L Potassium 3.4 L (3.5-5.1) mEq/L Chloride 100 (98-107) mEq/L Carbon Dioxide 32 (21-32) mEq/L Anion Gap 12.4 (5-15) BUN 11 (7-18) mg/dL Creatinine 3.0 H (0.55-1.02) mg/dL Est Cr Clr Drug Dosing TNP Estimated GFR (MDRD) 15 (>60) mL/min BUN/Creatinine Ratio 3.7 L (14-18) Glucose 151 H (83-115) mg/dL Calcium 8.5 (8.5-10.1) mg/dL Total Bilirubin 0.5 (0.2-1.0) mg/dL AST 38 H (15-37) U/L ALT 15 (14-59) U/L Alkaline Phosphatase 163 H (46-116) U/L Total Protein 7.0 (6.4-8.2) g/dl Albumin 2.8 L (3.4-5.0) g/dl Globulin 4.2 gm/dL Albumin/Globulin Ratio 0.7 L (1-2) - Re-Assessments/Exams Free Text/Narrative Re-Assessment/Exam: 02/08/17 16:54 I was able to the patient fairly quickly after arrival to the emergency department as a code stroke was called. Her exam was concerning she was unresponsive her right pupil was fixed and dilated left pupil was sluggish but reactive her history was a little unknown it's the anticus while to get her medication however family was fairly certain she was on blood thinners the patient was rushed to CT. This demonstrated a large subdural hematoma on the right side with significant midline shift and effacement there is a questionable amount small blood near the foramen of Rodriges. Her was present and requested no aggressive intervention basically keep her comfortable she did not feel she would tolerate any surgical intervention and didn't want to put her through that. I did discuss the situation with , neurosurgeon at [facility] in [place]. There is probably no benefit reversing her Coumadin as she's not a surgical candidate the outcome of the situation will not be benefited. Family agrees. At the time the patient presented to emergency room bed situation the hospital was poor we kept her in the emergency room to keep her comfortable. Patient at 1635 family by her side. Departure - Departure Time of Disposition: 16:35 Disposition: 20 Preliminary Cause of *Q: Other_Special Instruction Clinical Impression: Subdural hematoma - My Orders Last 24 Hours: My Active Orders 02/08/17 10:06 EKG Documentation Completion [RC] STAT - Assessment/Plan Last 24 Hours: My Active Orders 02/08/17 10:06 EKG Documentation Completion [RC] STAT
[2017-02-08 10:21] VITALS: BP 185/103
--- NOTE | 2017-02-08 11:14 | CT ---
Head CT Technique: Multiple axial sections through the brain were obtained. Intravenous contrast was not utilized. Motion artifact noted on the first scan and scan was repeated which shows continued motion artifact. Comparison: Previous study of 01/31/17. Findings: Acute subdural hematoma is noted on the right side. Thickness of the subdural hematoma is about 2.0 cm. There is also blood being seen, which is felt to be subdural in location, along the posterior intercerebral falx. Significant midline shift is seen by approximately 1.5 cm. Effacement of the right lateral ventricle is seen. Increased density seen near the foramen of Monro which may represent additional blood. Bone window settings shows no discrete acute calvarial abnormality. Impression: 1. Acute subdural hematoma on the right side causing significant midline shift and effacement of the right lateral ventricle. This is an interval change from previous exam. 2. Questionable small amount of blood near the foramen of Rodriges. 3. No other acute abnormality is seen. Diagnostic code #5
--- NOTE | 2017-02-08 11:14 | CR ---
Chest: Portable view of the chest was obtained. Comparison: Previous chest x-ray of 02/06/17. Continuing right sided pleural effusion is seen. Heart size is stable. Tortuous thoracic aorta is seen. Pulmonary vessels felt to be slightly congested which appear to be fairly chronic. Bony structures are osteopenic. Impression: 1. Findings as described above which remain fairly stable to previous chest x-ray. Diagnostic code #3
== END 2017-02-08 17:17 | disposition expired ==
LOC: JD.ED 09:49
DX: W19.XXXA Unspecified fall, initial encounter; Y92.129 Unspecified place in nursing home as the place of occurrence of the external cause; I48.91 Unspecified atrial fibrillation; I50.9 Heart failure, unspecified; I12.9 Hypertensive chronic kidney disease with stage 1 through stage 4 chronic kidney disease, or unspecified chronic kidney disease; N18.9 Chronic kidney disease, unspecified; F32.9 Major depressive disorder, single episode, unspecified; Z86.73 Personal history of transient ischemic attack (TIA), and cerebral infarction without residual deficits; Z87.891 Personal history of nicotine dependence; Z79.01 Long term (current) use of anticoagulants; Z79.899 Other long term (current) drug therapy; Z99.2 Dependence on renal dialysis; Z51.5 Encounter for palliative care
CPT/HCPCS: 36415; 70450; 70450-26; 71010; 71010-26; 80053; 85025; 85610; 85730; 93005; 99285; 99285-25